=== PATIENT | male | born 1965 | race Caucasian/White ===

== ENCOUNTER 2024-10-23 08:34 | Emergency (ER) | payer BC, SELFPAY ==
[2024-10-23 08:43] VITALS: BP 181/97; PULSE 88; RESP 16; TEMP 36.1; O2SAT 97; BMI 23.5
--- NOTE | 2024-10-23 08:56 | CRLHL7_ITS ---
For Patients: As a result of the Century Cures Act, medical imaging exams and procedure reports are released immediately into your electronic medical record. You may view this report before your referring provider. If you have questions, please contact your health care provider. Indication: Left-sided scrotal pain Technique: Sonography of the scrotum and its contents was performed. Grayscale, color Doppler and spectral Doppler interrogation was performed. Comparison: None Findings: The testes are normal in size and echogenicity without focal mass. The right testis measures 4.7 x 2.1 x 3.1 centimeters and the left testis measures 4.0 x 1.9 x 2.7 centimeters. Testicular blood flow is normal. No evidence of hyperemia to suggest orchitis and no decreased blood flow to suggest torsion. Scrotal skin thickness is normal. No hydrocele. There is a left-sided varicocele which is partially thrombosed. This corresponds to the area of pain and presumably the area of palpable concern. Impression: Partially thrombosed left varicocele. This corresponds to the area of pain and presumably corresponds to the area of palpable concern. The testes appear normal. Dictated by Jeremy Flores MD @ 10/23/2024 10:00:25 AM (Electronically Signed)
--- NOTE | 2024-10-23 08:57 | ED.GENADULT ---
HPI - General Adult General Date Seen: 10/23/24 Chief complaint: Groin Pain Stated complaint: lower left side pain Time Seen by Provider: 10/23/24 08:38 Source: patient Mode of arrival: ambulatory Limitations: no limitations History of Present Illness HPI narrative: Patient is a 59-year-old male with no pertinent medical problems presenting to the emergency department for left testicular and groin pain. States for the past few weeks he is having intermittent pain in this area. First he thought it was mostly in the testicle but now he knows it is above scrotal to the groin/pelvic region. Has not noticed any bulges in the area. Pain seems to get worse when he is up and moving around. Today when he was walking around states pain was a 7/10. Pain is better when lays down. The symptoms have been going on for several weeks. He did take ibuprofen for pain which helps some. He called his clinic to try and set up an appointment but was told by the triage that he needs to come emergency department for an ultrasound despite the symptoms being intermittent for several weeks. Denies any penile discharge or dysuria. Denies fevers, chills, abdominal pain, lightheadedness, dizziness. No other concerns noted. Related Data Previous Rx's ?Medication ?Instructions ?Recorded apixaban 5 mg (74 tabs) tablets in 5 mg PO BID #74 ea 10/23/24 a dose pack (Eliquis DVT-PE Treat 30D Start) Allergies Allergy/AdvReac Type Severity Reaction Status Date / Time No Known Drug Allergies Allergy Verified 10/23/24 08:41 Review of Systems Status of ROS: Reports: 10 or more systems reviewed and unremarkable except as noted in History and below Exam Narrative: Exam Narrative: Const: Well-nourished, Well-developed, in mild distress Eyes: PERRL, no conjunctival injection, and symmetrical lids HENT: Atraumatic external nose and ears. Moist mucous membranes. Neck: Symmetric, trachea midline, No thyromegaly. CVS: RRR, No murmurs or gallops. Peripheral pulses 2+ and equal in all extremities RESP: Unlabored respiratory effort. Clear to auscultation bilaterally. GI: Nontender/Nondistended, No rebound or guarding. : No hernias felt on exam. No more cremasteric reflexes. No tenderness to the testicles. No swelling noted MSK:Extremities w/o deformity, Normal Active ROM Skin: Warm, Dry. No rashes or lesions. Neuro: Normal Muscle tone, No focal neurological deficits. Psych: Awake, Alert, & Oriented x3. Appropriate mood and affect. Const: Vital Signs, click to edit/add: Vital Signs - 24 hr 10/23/24 08:43 Temperature 97.0 F L Pulse Rate [Pulse Oximeter] 88 Respiratory Rate 16 Blood Pressure [Ri ght Upper Arm] 181/97 H Pulse Oximetry 97 Oxygen Delivery Me thod Room Air Course Vital Signs Vital signs: Initial Vital Signs Temperature 97.0 F L 10/23/24 08:43 Temperature Source Temporal Artery Scan 10/23/24 08:43 Pulse Rate 88 10/23/24 08:43 Respiratory Rate 16 10/23/24 08:43 Blood Pressure 181/97 H 10/23/24 08:43 Blood Pressure Mean 125 H 10/23/24 08:43 Blood Pressure Position Sitting 10/23/24 08:43 Pulse Oximetry 97 10/23/24 08:43 Oxygen Delivery Method Room Air 10/23/24 08:43 Vital Signs Temperature 97.0 F L 10/23/24 08:43 Pulse Rate 88 10/23/24 08:43 Respiratory Rate 16 10/23/24 08:43 Blood Pressure 181/97 H 10/23/24 08:43 Pulse Oximetry 97 10/23/24 08:43 Oxygen Delivery Method Room Air 10/23/24 08:43 Temperature 97.0 F L 10/23/24 08:43 Pulse Rate 88 10/23/24 08:43 Respiratory Rate 16 10/23/24 08:43 Blood Pressure 181/97 H 10/23/24 08:43 Pulse Oximetry 97 10/23/24 08:43 Oxygen Delivery Method Room Air 10/23/24 08:43 Medical Decision Making MDM Narrative Medical decision making narrative: Patient is a 59-year-old male presenting for left groin and testicular pain. Considering like the symptoms seems unlikely to be a torsion. While it could be intermittent torsion I would expect the pain to be much more severe than what he describes. He is also having no signs of epididymitis. There is no swelling noted and a hydrocele seems unlikely. Could be varicocele. Will do an ultrasound for better evaluation. Ultrasound shows a partially thrombosed left varicocele vein. The resurgence how to treat a thrombosed varicocele vein is not very conclusive. Some of the recommendations are NSAIDs for 7-10 days. He has already been doing this due to his associated knee pain it has not helped. Next options are possible surgery to have the clot removed or can try blood thinners. I spoke to him and his girlfriend who at this time are in agreement that they would like to try the blood thinner. I gave him strict return precautions and to watch out for signs of bleeding. I explained that he hit his head he will need to be evaluated for any bleeding. He states he understands and agrees to this plan. Also told him to follow-up with his primary care provider next week. Imaging Data Scrotal ultrasound: Attestation: I have reviewed the pertinent imaging results. Radiologist's impression: Partially thrombosed left varicocele. This corresponds to the area of pain and presumably corresponds to the area of palpable concern. The testes appear normal. Dictated by Jeremy Flores MD @ 10/23/2024 10:00:25 AM Discharge Plan Discharge Clinical Impression: Left varicocele Patient Disposition: Home, Self-Care Condition: Stable Instructions: Testicle Pain (ED), Spermatic Vein Ligation (DC) Additional Instructions: I will start you on a blood thinner to try and dissolve this blood clot in your testicular vein. I do recommend following up closely with your primary care provider. You will bruise much easier on the blood thinner and if you do hit your head a recommend seeing emergency department provider immediately to look for signs of bleeding. Please return to emergency department for new or worsening symptoms. Continue to take ibuprofen at home for pain. If this does not work you may need to follow-up with urology or vascular surgery. Prescriptions: New Eliquis DVT-PE Treat 30D Start 5 mg (74 tabs) tablets,dose pack 5 mg PO BID Qty: 74 0RF Rx Instructions: take 10 mg twice daily for for 7 days then 5 mg twice daily the her after that Follow Up/Referrals: Provider,Not a Local [Primary Care Provider, Family Practice] Stand Alone Forms: [employer] Info Instructions, Work/School Release
--- OUTSIDE RECORDS SUMMARY | 2024-10-23 09:12 | XMS_ITS | Clinical Summary ---
Author Organization [facility] Address [address] [place] [id number] Care Team Providers Care Pan Shover Name Role Phone Clinic, [facility] Primary Care Provider Allergies No known active allergies Medications naproxen (NAPROSYN) 250 MG tablet Take 250 mg by mouth 2 times daily (with meals) Active Active Problems Problem Noted Date Diagnosed Date Renal colic 03/31/2018 Social History Tobacco Use Types Packs/Day Years Used Date Smoking Tobacco: Never Smokeless Tobacco: Never Alcohol Use Standard Drinks/Week Comments No 0 (1 standard drink = 0.6 oz pur e alcohol) Sex and Gender Information Value Date Recorded Sex Assigned at Not on file Legal Sex Male 5:09 AM [employer] Gender Identity Not on file Sexual Orientation Not on file Last Filed Vital Signs Vital Sign Reading Time Taken Comments Blood Pressure 138/78 04/09/2018 2:33 PM [employer] Pulse 89 04/09/2018 2:33 PM [employer] Temperature 36.6 C (97.8 F) 04/02/2018 7:24 AM [employer] Respiratory Rate 20 04/02/2018 7:24 AM [employer] Oxygen Saturation 97% 04/09/2018 2:33 PM [employer] Inhaled Oxygen Concentration - - Weight 81.6 kg (180 lb) 04/09/2018 2:33 PM [employer] Height 190.5 cm (6' 3) 04/09/2018 2:33 PM [employer] Body Mass Index 22.5 04/09/2018 2:33 PM [employer] Plan of Treatment Not on file Medical Devices Implanted Type Area Openstack Developer Device Identifier Shelf Expiration Date Model / Serial / Lot Stent Ureteral Polaris Ultra [id number] Implanted:Qty: 1 on 04/01/2018 by Juancarlos Andino MD at [facility] Stent Left: Ureter [employer] 11/04/2020 [id number] / [id number] Insurance BCBS OUT OF STATE Advance Directives For more information, please contact: [phone] * Full Code (Latest Code Status on File) Date Activated Date Inactivated Comments 04/01/2018 8:52 AM Question Answer Comments Code status determined by: Discussion with patie nt/legal decision maker * Full Code Date Activated Date Inactivated Comments 03/31/2018 1:52 PM 04/01/2018 8:52 AM Question Answer Comments Code status determined by: Discussion with patie nt/legal decision maker Care Teams Pan Shover Relationship Specialty Start Date End Date [address] [id number] PCP - General 01/01/18
== END 2024-10-23 10:37 | disposition home or self-care (01) ==
PROVIDERS: Emergency Provider Student in an Organized Health Care Education/Training Program
DX: I86.1 Scrotal varices (principal)
CPT/HCPCS: 76870; 93976; 99283